=== PATIENT | male | born 1945 | race Caucasian/White ===

== ENCOUNTER → 2018-12-14 | Outpatient (CLI) | payer MEDICARE ==
[2018-12-14 13:02] LABS: HCT 43.4 % (39.0-53.0); HGB 14.5 gm/dL (13.0-17.5); MCH 33.5 pg (25.0-35.0); MCHC 33.5 g/dL (31.0-37.0); MCV 100.2 fL (80.0-100.0); Mean Platelet Volume 8.4; Platelet Count 231 k/uL (150-450); RBC 4.33 m/uL (4.30-5.90); RDW 13.1 % (11.5-15.5)
[2018-12-14 13:05] LABS: Appearance,Urine Clear (Clear); Bilirubin,Urine Negative (Negative); Blood,Urine Negative (Negative); Color,Urine Yellow; Glucose,Urine (UA) Negative (Negative); Ketones,Urine Negative (Negative); Leukocyte Esterase,Urine Negative (Negative); Nitrite,Urine Negative (Negative); Protein,Urine Negative (Negative); Specific Gravity,Urine 1.014 (1.001-1.035); Urobilinogen,Urine <2.0 mg/dL (<2.0)
[2018-12-14 13:08] LABS: INR 0.9 (<1.2); Partial Thromboplastin Time 23.2 sec (22.0-30.0); Prothrombin Time 9.8 sec (9.0-12.0)
[2018-12-14 13:09] LABS: Albumin 3.9 g/dL (3.5-5.0); Calcium 9.2 mg/dL (8.4-10.2); Potassium 4.5 mmol/L (3.5-5.1); Total Bilirubin 0.5 mg/dL (0.2-1.3); Total Protein 6.5 g/dL (6.3-8.2)
== END | disposition home or self-care (01) ==
LOC: LABPAT 12:13
PROVIDERS: ATTEND Orthopaedic Surgery
DX: Z01.812 Encounter for preprocedural laboratory examination (principal); M17.11 Unilateral primary osteoarthritis, right knee; Z79.01 Long term (current) use of anticoagulants
CPT/HCPCS: 80053; 81003; 85027; 85610; 85730; 87070

== ENCOUNTER 2019-01-03 10:37 | Day surgery (SDC) | payer MEDICARE ==
[~2019-01-03 10:37] MED LIST: MELOXICAM 7.5 MG TAB PO ONE; MIDAZOLAM 2 MG/2 ML VIAL IV PRN; ONDANSETRON 4 MG/2 ML VIAL IVP ONE; TRANEXAMIC ACID 1,000 MG in SODIUM CHLORIDE 0.9% 100 ML IVPB ONE
[2019-01-03] MEDS: LACTATED RINGERS 1,000 ML IV SCH ×3 (11:15→20:29)
[2019-01-03] MEDS ORDERED: MIDAZOLAM (PF) 2 MG/2 ML VIAL IVP ONE (11:42)
--- NOTE | 2019-01-03 12:08 | P.ANPRN ---
Procedure Note - Anesthesia - Nerve Block Performed Right Adductor Canal Time Out Performed: Yes (11:41) Date of Procedure: 01/03/19 Procedure Start Time: : Procedure Stop Time: : Location of Patient Procedure: PreOp Indication: Acute Post-Operative Pain, Requested by Surgeon (Dr Monsivais) Sedation Type: Sedate with meaningful contact maintained Preparation: Sterile Prep, Sterile Dressing Position: Supine Catheter: Indwelling Needle Types: On-Q Needle Gauge: 21 Ultrasound used to visualize needle placement: Yes Ultrasound used to observe medication spread: Yes Injectate: 0.5% Ropivacaine (see comment for volume) (20cc) Blood Aspirated: No Pain Paresthesia on Injection Noted: No Resistance on Injection: Normal Image Stored and Saved: Yes Events: Uneventful and Well Tolerated
[2019-01-03] MEDS ORDERED: ROPIVACAINE 246.25 MG, EPINEPHrine 0.5 MG, KETOROLAC 30 MG, cloNIDine HCL/PF 80 MCG, WA... MISCELLANE ONE ×5 (12:22)
[2019-01-03] MEDS ORDERED: fentaNYL (PF) 50 MCG/ML 2 ML AMP ONE (12:39)
[2019-01-03] MEDS ORDERED: HYDROmorphone (PF) 1 MG/ML ONE (12:39)
[2019-01-03] MEDS ORDERED: TRANEXAMIC ACID 1,000 MG/10 ML VIAL ONE (12:39)
[2019-01-03] MEDS ORDERED: SODIUM CHLORIDE 0.9% 100 ML BAG ONE (12:39)
[2019-01-03] MEDS ORDERED: diphenhydrAMINE 50 MG/ML 1 ML VIAL ONE (12:39)
[2019-01-03] MEDS ORDERED: MIDAZOLAM 2 MG/2 ML VIAL ONE (12:39)
[2019-01-03] MEDS ORDERED: PROPOFOL 10 MG/ML 20 ML VIAL IV ONE (12:39)
[2019-01-03] MEDS ORDERED: KETAMINE 10 MG/ML 20 ML VIAL ONE (12:39)
[2019-01-03] MEDS ORDERED: ceFAZolin 3,000 MG in SODIUM CHLORIDE 0.9% IRRIGATIO 3,000 ML IRRIGATION ONE (13:20)
[2019-01-03] MEDS ORDERED: LACTATED RINGERS 1,000 ML IV ONE (14:00)
--- NOTE | 2019-01-03 14:45 | P.OP ---
Date of Procedure: 01/03/19 Procedure(s) Performed: PREOPERATIVE DIAGNOSIS: Right knee severe osteoarthritis with genu varum POSTOPERATIVE DIAGNOSIS: Right knee severe osteoarthritis with genu varum OPERATION: Right knee cemented total replacement arthroplasty. ANESTHESIA: Spinal ESTIMATED BLOOD LOSS: 100 ml. HEALTH ANALYST: Bella Macario PA-C (assistance with: patient positioning, retraction, exposure, hemostasis, leg positioning, implantation, irrigation, closure, dressing) COMPLICATIONS: None apparent. COMPONENTS IMPLANTED: Journey II BCS total knee system from [employer] [facility] [employer] [facility] INDICATIONS: Mr. Meraz is a 73 year old male with a history of right knee osteoarthritis. The patient's knee is end-stage, and conservative management has failed. The operation of knee replacement has been discussed at length in the office, as well as potential risks and complications. These are inclusive of, but not limited to: bleeding, infection, scarring, discomfort, blood vessel and nerve damage, need for further surgery, failure to relieve symptoms, persistence, recurrence, or worsening of problems, loosening, dislocation, wear, blood clot, pulmonary embolism, , gait dysfunction, stiffness, and other risks as discussed in the office. The patient elects to proceed and the consent form has been signed. PROCEDURE: The patient was taken to the operating room and positioned on the operating room table in the supine position. Anesthesia was initiated. Care was taken to make sure that all pressure points were adequately padded. The right operative lower extremity was prepped and draped in the usual aseptic fashion using ChloraPrep. Ioban drape was used for the case and the patient received intravenous antibiotics within one hour of the incision. A pneumotourniquet and leg hernandez were used for the case. The limb was exsanguinated with an Esmarch bandage and the tourniquet was inflated to 350 mmHg. Time-out was called confirming the patient's identity, side, procedure and administration of antibiotics and tranexamic acid. The incision was then created midline directly over the left knee, carried down through skin and into the subcutaneous tissues and down to fascia. Full thickness subcutaneous medial flap was developed. Medial parapatellar arthrotomy was performed and the interior of the knee was inspected. There was end-stage osteoarthritis of the knee with a mild to moderate genu varum type deformity. The fat pad was excised and proximal medial release on the tibia was completed using meticulous dissection and a curved osteotome. The anterior cruciate ligament was taken down. Note was made of significant attrition of the anterior and significant degenerative appearance of the cruciate ligaments. The exposure was excellent. The knee was flexed 90 degrees and the patella was everted. The [employer] pre- made distal cutting block was attached and pinned into position. The planned cut was analyzed visually and found to be satisfactory without the need for any adjustment. The oscillating saw was then used to make the distal femoral cut. This cut was confirmed to be flat with the flat end of an osteotome. The retractors were placed around the tibia and the tibial surface was addressed. The [employer] pre-made guide was placed onto the exposed tibial surface and pinned into position to sunil the rotational alignment. The alignment of the guide was checked for depth of plannned resection, slope, and varus valgus. Guide was confirmed to be in good position and the tibial cut was then created with protection of the posterior neurovascular structures and the collateral ligaments. The tibial cut surface was removed and sized. Femoral sizing was then accomplished using posterior referencing. Care was taken to analyze the posterior condyles for signs of deficiency or severe wear, and adjustments to the guide were made, as appropriate. 3 degree external rotation pins were placed relative to Tori's line. The cutting jig for the femur was applied to these pins. The planned cuts were further analyzed prior to performing them with the oscillating saw. No femoral notching was produced. Bone fragments were removed and the cut surfaces were finished, as necessary, with a reciprocating saw. Spacer block technique was then used to confirm that the flexion and extension gaps were equal. Soft tissue releases and adjustment of the tibial and/or femoral cuts were made, as necessary, until the gaps were equal. This included release of the posterior cruciate ligament, which was excessively tight in this patient. The femur was then further finished for a posterior cruciate ligament substituting component. Patellar resurfacing was performed using a reamer. The size of the required patellar component was estimated and the patellar surface was then reamed down to a residual thickness which would recreate the [place]umne thickness with the component. The exact placement of the patellar component was adjusted for position based on preoperative x-rays and intraoperative findings. Prior to placing trial components, anesthetic solution consisting of ropivicaine with epinephrine, ketorolac, and clonidine was injected carefully and methodically in a grid pattern using aspiration technique into the soft tissue around the knee circumferentially, starting with the deeper tissues first and progressing to fascia, and then finally the skin/subcutaneous tissue. Particular care was taken when injecting the posterior capsule. The trial components were inserted. The tibial tray was allowed to self center and the patella was noted to track very well. The position of the tibial component was marked and noted to be nearly exactly aligned with the pre-drilled holes from the [employer] guide. The tibia was then finished for a stemmed tibial component. Cement was mixed on the back table and applied to the final components. Trial components were removed and the cut surfaces of the bone were pulse lavaged thoroughly and dried. Cement was then applied to the tibial surface and pressurized into the surface using finger pressurization technique. The tibial component was then applied and excess cement was removed after it was impacted securely and noted to be flush with the cut surface. In similar fashion, the cement was applied to the cut femoral surface, pressurized in using finger pressurization and the component was impacted into place. Excess cement was removed. The polyethylene spacer was then implanted and locked into position. The patellar component was then applied in similar technique and a patellar clamp was used to hold the patella in place as the cement hardened. Once the cement had fully hardened, the knee was reinspected. Any other cement extrusion was removed and final kinematic testing showed range of motion from 0 to 130 degrees with excellent stability, both medially and laterally and appropriate alignment of the leg. Patellar tracking was excellent. The knee was then thoroughly pulse lavaged with normal saline. The tourniquet was deflated and hemostasis was obtained with electrocautery and IV tranexamic acid, 1 g given at the start of the operation and 1 g at the start of closure. Closure was with #2 Ethibond in the fascia/capsule and supplemented with #2 Quill, 2-0 Vicryl suture was used for the subcutaneous tissues and 3-0 Quill for the skin. Dermabond/Steri-Strips were then applied. A lightly compressive dressing was applied using Webril and an Tu wrap. The patient was then hairston sferred to stretcher and taken to the recovery room in stable condition. Sponge and needle counts were correct.
[2019-01-03] MEDS ORDERED: BISACODYL 10 MG SUPP RECTAL PRN (15:15)
[2019-01-03] MEDS ORDERED: MAGNESIUM HYDROXIDE 2,400 MG/10 ML CUP PO PRN (15:15)
[2019-01-03] MEDS ORDERED: NA PHOS,M-B/NA PHOS,DI-BA 133 ML ENEMA RECTAL PRN (15:15)
[2019-01-03] MEDS ORDERED: TEMAZEPAM 15 MG CAP PO PRN (15:15)
[2019-01-03] MEDS ORDERED: HYDROcodone/APAP 5-325MG 1 EACH TAB PO PRN (15:15)
[2019-01-03] MEDS ORDERED: DIAZEPAM 5 MG TAB PO PRN (15:15)
[2019-01-03] MEDS ORDERED: NALOXONE 0.4 MG/ML 1 ML VIAL IV PRN (15:15)
[2019-01-03] MEDS ORDERED: HYDROmorphone 0.5 MG/0.5 ML SYRINGE IVP PRN ×2 (15:15)
--- NOTE | 2019-01-03 15:35 | XR ---
EXAMINATION TYPE: XR knee limited RT DATE OF EXAM: 01/03/2019 CLINICAL HISTORY: Postoperative evaluation Two views of the right knee are submitted. Identified are changes of total knee arthroplasty with femoral and tibial components appearing well seated. Postsurgical soft tissue changes are noted. Alignment is anatomic.
[2019-01-03] MEDS: ROPIVACAINE 0.2%-NS ON-Q PUMP 1,090 MG, EMPTY PAIN BALL 1 EACH MISCELLANE PRN ×3 (15:41→21:30)
[2019-01-03] MEDS: HYDROmorphone 0.5 MG/0.5 ML SYRINGE IVP PRN ×3 (16:00→20:30)
[2019-01-03 18:18] VITALS: BMI 34.7
[2019-01-03] MEDS: ASPIRIN 325 MG TAB PO SCH (20:31)
[2019-01-03] MEDS ORDERED: SENNOSIDES-DOCUSATE SODIUM 1 EACH TAB PO SCH (21:00)
[2019-01-03] MEDS: HYDROcodone/APAP 5-325MG 1 EACH TAB PO PRN (23:40)
[2019-01-04] MEDS: HYDROmorphone 0.5 MG/0.5 ML SYRINGE IVP PRN ×4 (00:48→12:36)
[2019-01-04] MEDS: LACTATED RINGERS 1,000 ML IV SCH ×2 (06:31→13:21)
--- NOTE | 2019-01-04 07:04 | P.PN ---
Progress Note - Text Progress Note Date: 01/04/19 Postoperative day # 1 status post total knee arthroplasty, under spinal anesthesia, and adductor canal catheter placed for postoperative analgesia, currently at ropivacaine 0.2% 8 mL per hour and continuous infusion, visual analogue scale is 5/10, patient using oral pain medication for breakthrough pain. Assessment and plan= Acute postoperative pain, adductor canal catheter for pain control, we'll continue the same management.
[2019-01-04 07:10] LABS: Basophils % (A) 0 %; Eosinophils # (A) 0.3 k/uL (0-0.7); Eosinophils % (A) 3 %; HCT 38.4 % (39.0-53.0); HGB 12.7 gm/dL (13.0-17.5); Lymphocytes # (A) 0.7 k/uL (1.0-4.8); Lymphocytes % (A) 9 %; MCH 32.9 pg (25.0-35.0); MCHC 33.1 g/dL (31.0-37.0); MCV 99.4 fL (80.0-100.0); Monocytes # (A) 0.6 k/uL (0-1.0); Monocytes % (A) 7 %; Neutrophils # (A) 6.1 k/uL (1.3-7.7); Neutrophils % (A) 78 %; Platelet Count 182 k/uL (150-450); RBC 3.86 m/uL (4.30-5.90); WBC 7.8 k/uL (3.8-10.6)
[2019-01-04] MEDS: HYDROcodone/APAP 5-325MG 1 EACH TAB PO PRN ×2 (07:57→14:19)
[2019-01-04] MEDS: ASPIRIN 325 MG TAB PO SCH (07:57)
[2019-01-04] MEDS ORDERED: MELOXICAM 7.5 MG TAB PO SCH (09:00)
[2019-01-04] MEDS ORDERED: ATORVASTATIN 40 MG TAB PO SCH (09:00)
[2019-01-04] MEDS ORDERED: LISINOPRIL 20 MG TAB PO SCH (09:00)
[2019-01-04 09:34] VITALS: BP 165/84; PULSE 92; RESP 17; TEMP 98.6
--- NOTE | 2019-01-04 10:45 | P.DS ---
Providers Expected date of discharge: 01/04/19 Attending physician: Leo Monsivais Consults: 01/03/19 15:15 Consult Physician Routine Consulting Provider: Yoandy Gonzalez Consult Reason/Comments: Medical management Do you want consulting provider notified?: Yes Primary care physician: Vasquez Frasereldor - Discharge Diagnosis(es) (1) Osteoarthritis of right knee Current Visit: Yes Status: Acute (2) Status post total right knee replacement Current Visit: Yes Status: Acute Hospital Course: This is a 73-year-old male who was last seen with complaint of continued right knee pain. The patient has a known history of degenerative arthritis of the right knee and presents to discuss surgical options. After discussion and consideration the patient elects to proceed with total right knee arthroplasty. The patient is seen preoperatively by his primary care physician and cleared for surgery. The patient is admitted to [facility] for total right knee arthroplasty. The procedures performed without complication or sequelae. Patient is doing well postoperatively. Vital signs are stable at discharge. Labs are stable at discharge. the patient is ambulating well with walker with minimal assistance. The patient is discharged to home on postop day #1 pending medical clearance. Please see orders and refer to the med rec for accurate list of medications. Plan - Discharge Summary Discharge Rx Participant: Yes New Discharge Prescriptions: New Aspirin 325 mg PO BID #60 tab HYDROcodone/APAP 7.5-325MG [[place] 7.5-325] 1 - 2 tab PO Q4-6H PRN #50 tab PRN Reason: Pain Sennosides-Docusate Sodium [Senokot-S] 1 tab PO BID #60 tablet Baclofen 10 mg PO TID PRN #30 tab PRN Reason: pain/spasm No Action Potassium Chloride 10 meq PO DAILY Furosemide [Lasix] 40 mg PO DAILY Diclofenac Sodium [Voltaren] 75 mg PO DAILY Lisinopril 40 mg PO DAILY Atorvastatin [Lipitor] 40 mg PO DAILY Fluticasone/Salmeterol [Advair 250-50 Diskus] 1 inhalation PO BID PRN PRN Reason: sob Loratadine-Pseudoeph 10-240 mg [Claritin-D 24 Hr] 1 each PO DAILY Discharge Medication List Atorvastatin [Lipitor] 40 mg PO DAILY 12/23/18 [History] Diclofenac Sodium [Voltaren] 75 mg PO DAILY 12/23/18 [History] Fluticasone/Salmeterol [Advair 250-50 Diskus] 1 inhalation PO BID PRN 12/23/18 [History] Furosemide [Lasix] 40 mg PO DAILY 12/23/18 [History] Lisinopril 40 mg PO DAILY 12/23/18 [History] Potassium Chloride 10 meq PO DAILY 12/23/18 [History] Loratadine-Pseudoeph 10-240 mg [Claritin-D 24 Hr] 1 each PO DAILY 12/28/18 [History] Aspirin 325 mg PO BID #60 tab 01/03/19 [Rx] HYDROcodone/APAP 7.5-325MG [[place] 7.5-325] 1 - 2 tab PO Q4-6H PRN #50 tab 01/03/19 [Rx] Sennosides-Docusate Sodium [Senokot-S] 1 tab PO BID #60 tablet 01/03/19 [Rx] Baclofen 10 mg PO TID PRN #30 tab 01/04/19 [Rx] Follow up Appointment(s)/Referral(s): Bella Macario, PAC [PHYSICIAN VERIFIER OPERATOR] - 01/17/19 9:50 am Activity/Diet/Wound Care/Special Instructions: 50% wt bearing RLE w walker. May shower if no drainage from incision. Discharge Disposition: HOME WITH HOME HEALTH SERVICES
--- NOTE | 2019-01-04 14:54 | P.CONS ---
History of Present Illness - Reason for Consult Consult date: 01/04/19 Medical management Requesting physician: Leo Monsivais - Chief Complaint Right knee surgery - History of Present Illness Consultation: This is a pleasant 73-year-old patient who follows with Dr. Galan. Patient is undergone a right total knee arthroplasty. Pain is present. No nausea vomiting. No chest pain or shortness of breath. Chronic stable medical conditions include COPD, hypertension, hyperlipidemia, obstructive sleep apnea uses CPAP machine. Sitting on bed. Not in distress. Did tolerate his meals. 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 Alcohol occasional Family history: Cancer Physical examination: VITAL SIGNS: 98.6, 92, 17, 165/84, 97% on 2 L GENERAL: BMI 35, sitting up in bed, not in distress. EYES: Pupils equal. Conjunctiva normal. HEENT: External appearance of nose and ears normal, oral cavity grossly normal. NECK: JVD not raised; masses not palpable. HEART: First and second heart sounds are normal; no edema. LUNGS: Respiratory rate normal; decreased breath sounds. ABDOMEN: Soft, nontender, liver spleen not palpable, no masses palpable. PSYCH: Alert and oriented x3; mood and affect normal. NEUROLOGICAL: Cranial nerves grossly intact; no facial asymmetry, power and sensation grossly intact. LYMPHATICS: No lymph nodes palpable in the axilla and neck MUSCULOSKELETAL: Dressing over the right knee Investigations: White count 7.8 hemoglobin 12.7 platelets 182 Labs in December 22 showed a potassium of 4.5 and a creatinine 1.07 Assessment: Right total knee arthroplasty -Primary osteoarthritis -COPD in a X smoker -Essential hypertension -Hyperlipidemia -Obstructive sleep apnea uses CPAP Plan: Home medications resumed. Pain control is a place. Patient's aspirin 325 mg twice a day for DT prophylaxis. Care was discussed with the patient. Questions were answered. Patient to follow a PCP upon discharge. Questions were answered. Thank you Dr. Monsivais Past Medical History Past Medical History: COPD, Hyperlipidemia, Hypertension, Skin Disorder, Sleep Apnea/CPAP/BIPAP Additional Past Medical History / Comment(s): bronchitis, dry skin on scalp, History of Any Multi-Drug Resistant Organisms: None Reported Past Surgical History: Hernia Repair, Orthopedic Surgery Additional Past Surgical History / Comment(s): ORIF left ankle, rt carpal tunnel, Past Anesthesia/Blood Transfusion Reactions: No Reported Reaction Past Psychological History: No Psychological Hx Reported Smoking Status: Former smoker Past Alcohol Use History: Occasional Additional Past Alcohol Use History / Comment(s): quit smoking 1998, smoked for > 20 yrs Past Drug Use History: None Reported - Past Family History Sister(s) Family Medical History: Cancer Medications and Allergies Home Medications Medication Instructions Recorded Confirmed Type Atorvastatin [Lipitor] 40 mg PO DAILY 12/23/18 01/03/19 History Diclofenac Sodium [Voltaren] 75 mg PO DAILY 12/23/18 01/03/19 History Fluticasone/Salmeterol [Advair 1 inhalation PO BID PRN 12/23/18 01/03/19 History 250-50 Diskus] Furosemide [Lasix] 40 mg PO DAILY 12/23/18 01/03/19 History Lisinopril 40 mg PO DAILY 12/23/18 01/03/19 History Potassium Chloride 10 meq PO DAILY 12/23/18 01/03/19 History Loratadine-Pseudoeph 10-240 mg 1 each PO DAILY 12/28/18 01/03/19 History [Claritin-D 24 Hr] Aspirin 325 mg PO BID #60 tab 01/03/19 Rx HYDROcodone/APAP 7.5-325MG [[place] 1 - 2 tab PO Q4-6H PRN #50 tab 01/03/19 Rx 7.5-325] Sennosides-Docusate Sodium 1 tab PO BID #60 tablet 01/03/19 Rx [Senokot-S] Baclofen 10 mg PO TID PRN #30 tab 01/04/19 Rx Allergies Allergy/AdvReac Type Severity Reaction Status Date / Time Penicillins Allergy Unknown Verified 01/03/19 10:59 Childhood Physical Exam Vitals: Vital Signs Temp Pulse Pulse Pulse Resp BP Pulse Ox 01/04/19 08:10 17 01/04/19 07:00 98.6 F 92 17 165/84 97 01/04/19 03:44 16 01/04/19 01:37 99.1 F 81 18 115/71 98 01/04/19 00:48 16 01/03/19 19:40 98.1 F 86 17 141/79 95 01/03/19 17:45 97.6 F 85 17 156/84 93 L 01/03/19 17:30 80 16 153/85 99 01/03/19 17:00 67 16 152/84 100 01/03/19 16:30 71 16 148/83 99 01/03/19 16:11 65 16 148/92 98 01/03/19 15:56 62 16 141/83 98 01/03/19 15:41 72 16 151/90 99 01/03/19 15:26 60 16 141/83 97 01/03/19 15:11 97.0 F L 75 10 L 158/80 95 Intake and Output 01/03/19 01/04/19 01/04/19 22:59 06:59 14:59 Intake Total 400 Output Total 250 Balance 150 Intake: IV 400 Output: Urine 250 Other: Voiding Method Urinal Urinal # Voids 2 Results CBC & Chem 7: 01/04/19 06:16 Labs: Abnormal Lab Results - Last 24 Hours (Table) 01/04/19 Range/Units 06:16 RBC 3.86 L (4.30-5.90) m/uL Hgb 12.7 L (13.0-17.5) gm/dL Hct 38.4 L (39.0-53.0) % Lymphocytes # 0.7 L (1.0-4.8) k/uL
== END 2019-01-04 14:28 | disposition home health service (06) ==
LOC: OR 10:37 → 4SSUR 17:40 → OR 01-04 14:28
PROVIDERS: ATTEND Orthopaedic Surgery
DX: M17.11 Unilateral primary osteoarthritis, right knee (principal); E78.5 Hyperlipidemia, unspecified; G47.33 Obstructive sleep apnea (adult) (pediatric); I10 Essential (primary) hypertension; J44.9 Chronic obstructive pulmonary disease, unspecified; Z79.82 Long term (current) use of aspirin; Z79.899 Other long term (current) drug therapy; Z87.891 Personal history of nicotine dependence; Z88.0 Allergy status to penicillin; Z99.89 Dependence on other enabling machines and devices
CPT/HCPCS: 97161; 85025; 88300; 73560; 27447; C1713; C1776; C1772; J2250 ×2; J0171; J1200; J0690 ×3; J2405; J3010; J1885; J1170 ×3; J2795 ×2; J2704; J0735

== ENCOUNTER → 2019-01-17 | Outpatient (CLI) | payer MEDICARE ==
--- NOTE | 2019-01-17 10:27 | US ---
EXAMINATION TYPE: US venous doppler duplex LE RT DATE OF EXAM: 01/17/2019 10:15 AM COMPARISON: NONE CLINICAL HISTORY: M25.561 Pain in right knee. Pain right leg post op knee surgery x2 weeks ago. SIDE PERFORMED: Right TECHNIQUE: The lower extremity deep venous system is examined utilizing real time linear array sonog travis with graded compression, doppler sonography and color-flow sonography. VESSELS IMAGED: External Iliac Vein (EIV) Common Femoral Vein Deep Femoral Vein Greater Saphenous Vein * Femoral Vein Popliteal Vein Small Saphenous Vein * Proximal Calf Veins (* superficial vessels) Right Leg: Negative for DVT IMPRESSION: 1. Right lower extremity ultrasound negative for deep venous thrombosis.
== END | disposition home or self-care (01) ==
LOC: RADUSWWP 09:47
PROVIDERS: ATTEND Orthopaedic Surgery
DX: M17.0 Bilateral primary osteoarthritis of knee (principal); Z68.34 Body mass index [BMI] 34.0-34.9, adult; Z87.891 Personal history of nicotine dependence; Z47.1 Aftercare following joint replacement surgery

== ENCOUNTER → 2023-01-30 | Outpatient (CLI) | payer MEDICARE ==
--- NOTE | 2023-01-30 17:51 | CT ---
EXAMINATION TYPE: CT chest wo con CT DLP: 896.5 mGycm, Automated exposure control for dose reduction was used. DATE OF EXAM: 01/30/2023 5:30 PM COMPARISON: 01/31/2022 radiograph CLINICAL INDICATION:Male, 77 years old with history of R91.1 LUNG NODULE; [facility], TECHNIQUE: Multiple axial images were obtained through the chest. Sagittal and coronal reformats were created for review. Contrast used: mL of (None if empty) Oral contrast used: (None if empty) FINDINGS: LUNGS/ PLEURA: Medial right lower lobe pulmonary nodule measuring 2.2 x 2.1 cm. Left major fissure intrafissural lymph node. Calcified granuloma left upper lobe series 3 image 164. No focal consolidation, pneumothorax or pleural effusion. AIRWAY: Patent and unremarkable. HEART: Size within normal limits. Severe atherosclerosis of the coronary arteries. MEDIASTINUM: No gross evidence of adenopathy. VASCULATURE: No aortic aneurysm. MUSCULOSKELETAL: Moderate disc degeneration changes are present throughout the thoracolumbar spine. SOFT TISSUES/LYMPH NODES: Unremarkable. LOWER NECK: No significant findings. UPPER ABDOMEN: Left hepatic lobe cyst. IMPRESSION: Right lower lobe medial pulmonary nodule measuring up to 2.2 cm. Tissue sampling recommended. No enlarged mediastinal lymph nodes identified. Severe atherosclerosis of the coronary arteries.
== END | disposition home or self-care (01) ==
LOC: RADCTMAIN 16:01
PROVIDERS: ATTEND Internal Medicine Critical Care Medicine
DX: I25.10 Atherosclerotic heart disease of native coronary artery without angina pectoris (principal); R91.1 Solitary pulmonary nodule
CPT/HCPCS: 71250

== ENCOUNTER 2023-02-19 11:27 | Day surgery (SDC) | payer MEDICARE ==
[2023-02-17 12:18] VITALS: BMI 37.2
[~2023-02-19 11:27] MED LIST changes: +LACTATED RINGERS 1,000 ML IV SCH; -MELOXICAM 7.5 MG TAB PO ONE; -MIDAZOLAM 2 MG/2 ML VIAL IV PRN; -TRANEXAMIC ACID 1,000 MG in SODIUM CHLORIDE 0.9% 100 ML IVPB ONE; +fentaNYL (PF) 50 MCG/ML 2 ML AMP IV PRN
--- NOTE | 2023-02-19 14:40 | P.PCN ---
Date of Procedure: 02/19/23 Preoperative Diagnosis: Preoperative Diagnosis: Right lower lobe nodule, 1.9 centimeter Postoperative Diagnosis: Right lower lobe nodule, 1.9 centimeter Procedure(s) Performed: Flexible bronchoscopy Robotic-assisted bronchoscopy and addition to radial ultrasound evaluation of the pulmonary nodule Robotic-assisted transbronchial needle aspirate, transbronchial biopsies, transbronchial brushing of the right lower lobe nodule, 1.9 centimeter in addition to a bronchioloalveolar lavage Anesthesia: [facility] Surgeon: Vidhya Hargrove Estimated Blood Loss (ml): 0 Pathology: other Condition: stable Disposition: same day Operative Findings: A physical exam was performed. Informed consent was obtained from the patient after explaining all the risks (pneumothorax, life threatening bleeding, infection and adverse effects due to medications), benefits and alternatives to the procedure which the patient appeared to understand and so stated. The patient was connected to the monitoring devices. General anesthesia was induced and the patient was intubated by anesthesia. A final timeout was performed and the procedure confirmed by the attending staff bronchoscopist. The bronchoscope was inserted and the airway examined. The flexible bronchoscope was removed and the robotic bronchoscope was inserted. Registration was completed. I next guided the robotic bronchoscope using the navigation system into the right lower lobe medial basilar segment. Once in proper position, the bronchoscope was frozen. The radial EBUS probe was placed through the bronchoscope and confirmed abnormal u/s images vs normal lung. A needle was placed through the working channel and under fluoroscopic guidance, we sampled the area thought to have the mass twice. We then used a cloud biopsy pattern with ultrasound confirmation for 2 additional passes with the needle. U/S evaluation was then used to reconfirm location. Forceps were next introduced through working channel and extended the appropriate distance and 3 transbronchial biopsies were performed using fluoroscopic guidance. The u/s probe was then reinserted to confirm location. When confirmed this process was repeated for a total of 8-9 transbronchial biopsies. After reassessment with EBUS, a brush was placed through the extendable working channel for 1 pass with fluoroscopic guidance. U/S evaluation was then used to confirm location. 40ml of saline was then instilled into the area of the lesion. The robotic bronchoscope was removed and the airway inspected with a flexible bronchoscope and 10 ml of effluent from the BAL was collected. The aspirate was bloody and ultimately declotted and based on that, the sample was discarded. Flex bronchoscope was inserted and regular suctioning was done. At the completion of the procedure, no residual secretions or bloody material within the airway. The bronchoscope was removed. The patient was extubated. FINDINGS: 1.The airways appeared normal 2 Successful navigation, ultrasonographic identification, and biopsies of right upper lobe pulmonary nodule, right lower lobe nodule 3.The the radial ultrasound view was (Concentric/Eccentric)}. RECOMMENDATIONS: Await pathology and cytology results The referring physician will be alerted to the results when available. The patient was advised to follow up with the referring physician with the biopsy results Patient will be called with results.
--- NOTE | 2023-02-19 14:47 | FL ---
Intraoperative/procedural fluoroscopic services were provided for right lower lobe bronchoscopy with multiple biopsies. Total fluoroscopy time is 3.19 minutes with a total of 4 submitted images to PACS. Total DAP 55.029 Gycm2. Please see the operative note for further details.
[2023-02-19 15:03] VITALS: TEMP 97.4
--- NOTE | 2023-02-19 15:19 | XR ---
EXAMINATION TYPE: XR chest 1V DATE OF EXAM: 02/19/2023 3:13 PM COMPARISON: CT chest 01/30/2023 TECHNIQUE: XR chest 1V Frontal view of the chest. CLINICAL INDICATION:Male, 77 years old with history of post bx; FINDINGS: Patient is rotated which limits evaluation. Lungs/Pleura: There is no evidence of pleural effusion or pneumothorax. Left basilar atelectasis. Pulmonary vascularity: Unremarkable. Heart/mediastinum: Cardiomediastinal silhouette is prominent in size. Musculoskeletal: No acute osseous pathology. Bilateral shoulder arthropathy. IMPRESSION: Left basilar atelectasis. No pneumothorax.
[2023-02-19 15:45] VITALS: RESP 18
[2023-02-19 16:06] VITALS: BP 143/78; PULSE 78
[2023-02-20 12:30] LABS: Appearance,BF Grossly Bloody (Clear); RBC, Body Fluid 323500 /UL (0-2000)
[2023-02-23 10:04] LABS: Nucleated Cells, Body Fluid 56 /UL
== END 2023-02-19 16:07 | disposition home or self-care (01) ==
LOC: ORWHC2ENDO 11:27
PROVIDERS: ATTEND Internal Medicine Critical Care Medicine
DX: R91.1 Solitary pulmonary nodule (principal); J44.89 Other specified chronic obstructive pulmonary disease; I10 Essential (primary) hypertension; E78.5 Hyperlipidemia, unspecified; G47.33 Obstructive sleep apnea (adult) (pediatric); E66.9 Obesity, unspecified; Z79.1 Long term (current) use of non-steroidal anti-inflammatories (NSAID); Z79.899 Other long term (current) drug therapy; Z88.0 Allergy status to penicillin; Z87.891 Personal history of nicotine dependence; Z68.37 Body mass index [BMI] 37.0-37.9, adult
CPT/HCPCS: 88108; 88305; 89050; 87070; 87205; 71045; 31628; 31629; 31623; 31624; J2405; S2900